=== PATIENT | female | born 1970 | race Caucasian/White ===

== ENCOUNTER 2018-08-16 17:44 | Emergency (ER) | payer MEDICAID ==
[2018-08-16 18:48] LABS: SQUAMOUS EPITHIAL < 1 /hpf (0-5); URINE BACTERIA FEW (<OCC); URINE BILIRUBIN NEGATIVE (NEGATIVE); URINE BLOOD 3+ (NEGATIVE); URINE CLARITY Hazy (Clear); URINE COLOR Yellow (YELLOW); URINE GLUCOSE (UA) NORMAL (Normal); URINE LEUKOCYTE ESTERASE 3+ Leu/uL (Negative); URINE PROTEIN 1+ mg/dL (NEGATIVE); URINE UROBILINOGEN NORMAL mg/dL (0.2-1.0)
--- NOTE | 2018-08-16 20:01 | C.PDOC ---
History Of Present Illness 48 year old female presents to the emergency department with complaints of pain with urination for the last two days, associated with increased urination. Patient denies nausea, vomiting, vaginal bleeding, vaginal discharge, fever, and chills. Time Seen by Provider: 08/16/18 18:07 Chief Complaint (Nursing): Female Genitourinary History Per: Patient History/Exam Limitations: no limitations Onset/Duration Of Symptoms: Days (2) Current Symptoms Are (Timing): Still Present Quality Of Discomfort: "Pain" Associated Symptoms: Urinary Symptoms (dysuria). denies: Fever, Chills, Nausea, Vomiting, Other (vaginal bleeding, vaginal discharge) Past Medical History Reviewed: Historical Data, Nursing Documentation, Vital Signs Vital Signs: Last Vital Signs Temp 98.8 F 08/16/18 18:02 Pulse 91 H 08/16/18 18:02 Resp 18 08/16/18 18:02 BP 157/76 H 08/16/18 18:02 Pulse Ox 99 08/16/18 18:02 - Medical History PMH: Hypothyroidism Surgical History: Cholecystectomy - [facility] Procedures OTHER SKIN & SUBQ I D (05/30/14) Family History: States: No Known Family Hx - Social History Hx Tobacco Use: No Hx Alcohol Use: No Hx Substance Use: No - Immunization History Hx Tetanus Toxoid Vaccination: No Hx Influenza Vaccination: No Hx Pneumococcal Vaccination: No Review Of Systems Except As Marked, All Systems Reviewed And Found Negative. Genitourinary: Positive for: Dysuria, Frequency Physical Exam - Physical Exam Appears: Non-toxic, No Acute Distress Skin: Normal Color, Warm, Dry Head: Atraumatic, Normacephalic Eye(s): bilateral: Normal Inspection, PERRL, EOMI Nose: Normal Oral Mucosa: Moist Neck: Normal, Supple Chest: Symmetrical, No Tenderness Cardiovascular: Rhythm Regular, No Murmur Respiratory: Normal Breath Sounds, No Rales, No Rhonchi, No Wheezing Gastrointestinal/Abdominal: Soft, Tenderness (suprapubic region), No Guarding, No Rebound Extremity: Normal ROM Neurological/Psych: Oriented x3, Normal Speech, Normal Cognition ED Course And Treatment - Laboratory Results Lab Results: Urine Color Yellow (YELLOW) 08/16/18 18:32 Urine Clarity Hazy (Clear) 08/16/18 18:32 Urine pH 6.0 (5.0-8.0) 08/16/18 18:32 Ur Specific [place] 1.002 (1.003-1.030) L 08/16/18 18:32 Urine Protein 1+ mg/dL (NEGATIVE) H 08/16/18 18:32 Urine Glucose (UA) Normal mg/dL (Normal) 08/16/18 18:32 Urine Ketones Negative mg/dL (NEGATIVE) 08/16/18 18:32 Urine Blood 3+ (NEGATIVE) H 08/16/18 18:32 Urine Nitrate Negative (NEGATIVE) 08/16/18 18:32 Urine Bilirubin Negative (NEGATIVE) 08/16/18 18:32 Urine Urobilinogen Normal mg/dL (0.2-1.0) 08/16/18 18:32 Ur Leukocyte Esterase 3+ Anibal/uL (Negative) H 08/16/18 18:32 Urine WBC (Auto) 141 /hpf (0-5) H 08/16/18 18:32 Urine RBC (Auto) 7 /hpf (0-3) H 08/16/18 18:32 Ur Squamous Epith Cells < 1 /hpf (0-5) 08/16/18 18:32 Urine Bacteria Few (<OCC) H 08/16/18 18:32 O2 Sat by Pulse Oximetry: 99 (RA) Pulse Ox Interpretation: Normal Medical Decision Making Medical Decision Making: Plan: Macrobid 100mg PO Motrin 600mg PO Pyridium 200mg PO Urine Culture POC Urine Urinalysis Disposition - Disposition Referrals: Shaik Johnson MD [Staff Provider] - Disposition: HOME/ ROUTINE Disposition Time: 20:00 Condition: STABLE Additional Instructions: follow up with your doctor within 2 days call to make an appointment take medications as prescribed return to ER if symptoms worsens or progress Prescriptions: Nitrofurantoin Macrocrystals [Macrobid] 100 mg PO BID #14 cap Phenazopyridine HCl [Pyridium] 200 mg PO TID PRN #6 tablet PRN Reason: Pain, Moderate (4-7) Instructions: Urinary Tract Infection, Adult (DC) Forms: [facility] ([place]), General Discharge Instructions - Clinical Impression Clinical Impression: UTI (urinary tract infection) - Scribe Statement The provider has reviewed the documentation as recorded by the Scribe (Rick Ceja) Provider Attestation: All medical record entries made by the Scribe were at my direction and personally dictated by me. I have reviewed the chart and agree that the record accurately reflects my personal performance of the history, physical exam, medical decision making, and the department course for this patient. I have also personally directed, reviewed, and agree with the discharge instructions and disposition.
[2018-08-16 20:23] VITALS: BP 156/84; PULSE 92; RESP 20; TEMP 98.9; O2SAT 100
== END 2018-08-16 20:23 | disposition home or self-care (01) ==
LOC: C.ER 17:44
DX: N39.0 Urinary tract infection, site not specified (principal)